=== PATIENT | female | born 1970 | race Caucasian/White ===

== ENCOUNTER → 2024-02-07 16:29 | Outpatient (REF) | payer OTHER, SELFPAY | LOC: WDC 16:29 | PROVIDERS: ATTENDING PHYSICIAN Obstetrics & Gynecology; FAMILY PHYSICIAN Internal Medicine | DX: R92.2 Inconclusive mammogram (principal) | CPT/HCPCS: 77063; 77067 ==

== ENCOUNTER → 2024-05-19 09:49 | Outpatient (REF) | payer OTHER, SELFPAY | LOC: WDC 09:49 | PROVIDERS: ATTENDING PHYSICIAN Obstetrics & Gynecology; FAMILY PHYSICIAN Internal Medicine | DX: R92.2 Inconclusive mammogram (principal) | CPT/HCPCS: 76641 ==

== ENCOUNTER → 2025-02-13 17:43 | Outpatient (REF) | payer OTHER, SELFPAY | LOC: WDC 17:43 | PROVIDERS: ATTENDING PHYSICIAN Student in an Organized Health Care Education/Training Program; FAMILY PHYSICIAN Internal Medicine | DX: Z12.31 Encounter for screening mammogram for malignant neoplasm of breast (principal) | CPT/HCPCS: 77063; 77067 ==

== ENCOUNTER 2025-11-04 12:50 | Emergency (ER) | payer OTHER, SELFPAY ==
[2025-11-04 12:53] VITALS: BP 135/77
--- NOTE | 2025-11-04 15:23 | ED.GENMED ---
History of Present Illness
General
Chief Complaint: Musculo-Skeletal Complaint
Source: patient
Exam Limitations: none
Time Seen by Provider: 11/04/25 15:06
Nursing documentation reviewed up to this point in time: agreed with
History of Present Illness
History of Present Illness:
Patient is a 55-year-old healthy female who presents to the emergency department with right wrist pain after slip and fall on ice earlier today. Patient states that she was on her driveway when she slipped on ice and caught herself with her right
arm outstretched. She denies any head strike, LOC, or other injuries sustained.
She has pain in her right wrist, exacerbated with pronation. She specifically denies any headache, neck pain, or pain in lower extremities. She is ambulating without difficulty.
No other concerns today.
Past History
Past History
ED Past Medical History: Hypercholesterolemia
ED Past Surgical History: None
Social History
Tobacco: Non-smoker
Alcohol: None
Drug: None
Personal:
Living: with family
Employment: Employed
Review of Systems
Review of Systems
Allergies reviewed?: Yes
All Other Systems: ROS reviewed and negative except as documented in HPI and ROS
Phy Exam
Physical Exam
Physical Exam:
Vitals: Patient's vital signs are stable. Afebrile
General: Patient is well appearing, no acute distress
Skin: Warm and dry, no rashes or lesions
Head: Normocephalic, atraumatic
Throat: Protecting airway
Neck: Normal ROM, no cervical spine tenderness
Cardiac: Regular rate
Pulm: No apparent respiratory distress
Abdomen: Nondistended
Extremities: Mild tenderness at radial aspect of wrist. Limited ROM in right wrist including pronation/supination and flexion/extension. No bony tenderness of right elbow w/ full ROM. 2+ palpable radial pulse in RUE with normal sensation. Capillary
refill intact.
Neuro: Grossly intact
Psychiatric: Normal affect.
Course
Orders/Labs/Results
Orders:
Orders
11/04/25 12:51
Wrist, Right 3 Views [CR Wrist - Right Min 3 Views] Urgent
Comment:
Reason For Exam: injury
11/04/25 15:22
Sling Right-Treatment ONCE
Splints/Slings/Crut- Treatment ONCE
Location: Right
Type of Splint: Sugar Ton
Ibuprofen [Motrin] 600 mg PO NOW STA
Vital Signs
Initial and Last Documented VS:
Initial Vital Signs
Temp Pulse Resp BP Pulse Ox
97.9 F 85 20 135/77 100
11/04/25 12:53 11/04/25 12:53 11/04/25 12:53 11/04/25 12:53 11/04/25 12:53
Last Documented Vital Signs
Temp Pulse Resp BP Pulse Ox
97.9 F 85 20 135/77 100
11/04/25 12:53 11/04/25 12:53 11/04/25 12:53 11/04/25 12:53 11/04/25 15:23
Procedures
Splinting/Sling Placement
Right Wrist:
Procedure completed by: Chinedu Larson RN
Pre-splint extermity exam: neurovascular intact
Type of splint: sugar-tong
Splint material: fiberglass
Splint checked by provider?: Yes
Type of sling: sling fitted
Normal distal neurovascular exam?: Yes
MDM/Problems Addressed
Differential Diagnosis Includes:
Not limited to: distal radius fracture, proximal ulnar fracture, wrist sprain, hand fracture, etc
MDM/Problems Addressed:
55-year-old female with right distal radius fracture. Slipped on ice fall right arm outstretched. No head strike or other associated injuries. Vital stable. On exam, patient has no obvious deformity of right wrist however does have reproducible
tenderness at the radial aspect with limited range of motion. Neurovascularly intact without any other injuries noted on exam. X-ray obtained prior to my evaluation shows a nondisplaced fracture of right distal radius.
Patient placed in a sugar-tong splint and given shoulder sling. She tolerated procedure well. Advised ice, elevation, Tylenol/Motrin for pain and orthopedic follow-up outpatient. Return precautions discussed. Patient comfortable with plan.
Chronic conditions affecting care:
N/A
Acute Exacerbation and/or Progression of Chronic Illness:
N/A
*Radiology
Radiology exam reviewed: radiology read reviewed
*Pulse Oximetry
SaO2: 100
Oxygen Mode of Delivery: Room air
Patient hypoxic: no
*EKG
Interpreted by ED Provider?: NA
*Pharmacy Picking Technician Interpretation
Rate: Pharmacy Picking Technician- N/A
*Critical Care Note
Total Time (30-74mins, 75-104mins- exclusive of procedures): Not Applicable
ED Attending Note
-
Portions of this chart may have been created with voice recognition software.� Occasional wrong word or��sound alike� substitutions may have occurred due to the inherent limitations of voice recognition software.
Discharge Plan
Departure
Patient Disposition: Home (Routine Discharge)
Date of Disposition: 11/04/25
Time of Disposition: 16:03
Patient with high blood pressure during this ER visit?: Yes
Discharge Problem:
Distal radius fracture, right, Fall
Instructions: Wrist Fracture (DC), Splint Care, BLOOD PRESSURE
Referrals:
Eugenia Guillen MD [Family Provider, Internal Medicine]
Yoni Henderson MD [Active, Orthopedics] - Next open appointment
Activity Restrictions/Additional Instructions:
RETURN TO THE EMERGENCY DEPARTMENT WITH ANY INTRACTABLE PAIN, NUMBNESS/TINGLING IN RIGHT HAND/DIGITS, SEVERE SWELLING, WORSENING CURRENT SYMPTOMS, OR ANY OTHER CONCERN
- As discussed�your x-ray imaging did show a nondisplaced fracture of your distal radius. Please keep sugar-tong splint on until seen by orthopedics. Continue to ice/elevate wrist overt the next few days. You can take Tylenol and alternate with
Motrin as needed for pain.
- Follow-up with orthopedics for further evaluation/management of your right wrist fracture. The contact information has been provided for you above.
Monitor your symptoms closely and return to the emergency department with any acute worsening/new symptoms or any other concerns
Interventions
Interventions:
*ED COVID-19 Vaccine History Last Done: 11/04/25 12:53
*ED Influenza Vaccine History Last Done: 11/04/25 12:53
*Risk Screen - Suicide (C-SSRS) Last Done: 11/04/25 12:53
*Nursing Disposition Last Done: 11/04/25 16:17
ED-Musculoskeletal Assessment Last Done: 11/04/25 15:20
Discharge Date and Time
Discharge Date/Time: 11/04/25 16:17
Print Language: BERMUDIAN
[2025-11-04] MEDS: MOTRIN 600 MG PO (15:32)
== END 2025-11-04 16:17 | disposition home or self-care (01) ==
LOC: EMR 12:50
PROVIDERS: EMERGENCY PHYSICIAN Emergency Medicine; FAMILY PHYSICIAN Internal Medicine
DX: S52.591A Other fractures of lower end of right radius, initial encounter for closed fracture (principal); W00.2XXA Other fall from one level to another due to ice and snow, initial encounter; E78.00 Pure hypercholesterolemia, unspecified
CPT/HCPCS: 29125; 99283; 73110